=== PATIENT | male | born 1965 | race Caucasian/White ===

== ENCOUNTER → 2024-12-30 | Outpatient (CLI) | payer BC, SELFPAY ==
[2024-12-30 13:31] LABS: Basophils # (Auto) 0.1 Thou/mm3 (0.0-0.2); Basophils % (Auto) 1 % (0-2.5); Eosinophils # (Auto) 0.2 Thou/mm3 (0.0-0.5); Eosinophils % (Auto) 3 % (0-10); Hematocrit 40.7 % (41.0-53.0); Hemoglobin 13.9 g/dL (13.5-16.0); Immature Granulocytes Auto 0.01 Thou/mm3 (0.00-0.00); Lymphocytes # (Auto) 1.9 Thou/mm3 (1.0-4.8); Lymphocytes % (Auto) 28 % (10-50); Mean Corpuscular HGB Conc 34.2 g/dl (31.0-37.0); Mean Corpuscular Hemoglobin 30.8 pg (25.0-35.0); Mean Corpuscular Volume 90 fL (80-100); Monocytes # (Auto) 0.5 Thou/mm3 (0.0-0.8); Monocytes % (Auto) 7 % (0-12); Neutrophils # (Auto) 4.2 Thou/mm3 (1.8-7.7); Neutrophils % (Auto) 61 % (37-80); Nucleated Red Blood Cell # 0.00 Thou/mm3 (0.00-0.00); Nucleated Red Blood Cell % 0 /100 WBC (0); Platelet Count 259 Thou/mm3 (140-440); RDW Standard Deviation 42.4 fL (35.1-43.9); Red Blood Count 4.52 Miln/mm3 (4.50-5.90); White Blood Count 6.8 Thou/mm3 (3.8-10.6)
[2024-12-30 13:47] LABS: Glucose Estimated Average 114 mg/dL (80-131); Hemoglobin A1C 5.6 % Hgb (4.8-6.0)
[2024-12-30 13:49] LABS: Alanine Aminotransferase 27 U/L (10-49); Albumin, Serum 4.3 gm/dL (3.5-5.0); Albumin/Globulin Ratio 1.7 (1.2-2.2); Alkaline Phosphatase 65 U/L (46-116); Anion Gap 6 (7-16); Aspartate Amino Transferase 24 U/L (0-34); BUN/Creatinine Ratio 6 Ratio (12-20); Bilirubin,Total 0.3 mg/dL (0.3-1.2); Blood Urea Nitrogen 8 mg/dL (9-23); Calcium 8.9 mg/dL (8.3-10.6); Calcium (Corrected) 8.9 mg/dL (8.5-10.1); Carbon Dioxide 28.8 mMol/L (20.0-31.0); Cardiac Risk Estimate 5.6 RATIO (4.0-6.7); Chloride 108 mMol/L (98-107); Cholesterol 208 mg/dL (132-200); Creatinine (Component) 1.3 mg/dL (0.6-1.3); Globulin 2.6 gm/dL (2.3-3.5); Glucose 98 mg/dL (74-106); HDL Cholesterol 37 mg/dL (40-60); LDL Cholesterol,Calculated 130 mg/dL (0-130); Osmolality,Calculated 283 (275-295); Potassium 4.3 mMol/L (3.4-5.1); Sodium 143 mMol/L (136-145); Total Protein 6.9 gm/dL (5.7-8.2); Triglycerides 205 mg/dL (30-150); eGFR > 60 See Note
== END | disposition home or self-care (01) ==
PROVIDERS: PCP Family Medicine; Referring Provider Family Medicine; Visit Provider Family Medicine
DX: E11.65 Type 2 diabetes mellitus with hyperglycemia (principal)
CPT/HCPCS: 36415; 80053; 80061; 83036; 85025

== ENCOUNTER → 2025-02-27 | Outpatient (CLI) | payer BC, SELFPAY ==
--- NOTE | 2025-02-27 | XR_ITS ---
EXAMINATION: PA lateral chest 2 views TECHNIQUE: Upright PA lateral chest 2 views Date and time: February 27, 2025, 1159 hours, comparison August 11, 2011 INDICATIONS: Physical examination FINDINGS: Normal heart size Stable small granuloma right lung. No interval pneumonia or pulmonary edema IMPRESSION: No active disease
[2025-02-27 12:43] LABS: Basophils # (Auto) 0.1 Thou/mm3 (0.0-0.2); Basophils % (Auto) 1 % (0-2.5); Eosinophils # (Auto) 0.1 Thou/mm3 (0.0-0.5); Eosinophils % (Auto) 1 % (0-10); Hematocrit 39.1 % (41.0-53.0); Hemoglobin 13.0 g/dL (13.5-16.0); Immature Granulocytes Auto 0.02 Thou/mm3 (0.00-0.00); Lymphocytes # (Auto) 1.6 Thou/mm3 (1.0-4.8); Lymphocytes % (Auto) 19 % (10-50); Mean Corpuscular HGB Conc 33.2 g/dl (31.0-37.0); Mean Corpuscular Hemoglobin 30.4 pg (25.0-35.0); Mean Corpuscular Volume 91 fL (80-100); Monocytes # (Auto) 0.5 Thou/mm3 (0.0-0.8); Monocytes % (Auto) 6 % (0-12); Neutrophils # (Auto) 6.3 Thou/mm3 (1.8-7.7); Neutrophils % (Auto) 73 % (37-80); Nucleated Red Blood Cell # 0.00 Thou/mm3 (0.00-0.00); Nucleated Red Blood Cell % 0 /100 WBC (0); Platelet Count 310 Thou/mm3 (140-440); RDW Standard Deviation 41.8 fL (35.1-43.9); Red Blood Count 4.28 Miln/mm3 (4.50-5.90); White Blood Count 8.6 Thou/mm3 (3.8-10.6)
[2025-02-27 13:05] LABS: Sed Rate (ESR) 31 mm/hr (0-20)
== END | disposition home or self-care (01) ==
LOC: CDIM 11:17 → COPL 12:06
PROVIDERS: PCP Family Medicine; Referring Provider Family Medicine; Visit Provider Radiology Diagnostic Radiology
DX: R07.9 Chest pain, unspecified (principal); R70.0 Elevated erythrocyte sedimentation rate; R68.89 Other general symptoms and signs
CPT/HCPCS: 36415; 71046; 85025; 85652

== ENCOUNTER 2025-03-14 11:43 | Emergency (ER) | payer BC, SELFPAY ==
[2025-03-14 11:44] VITALS: BMI 31.0
[2025-03-14 11:59] VITALS: BP 155/83; PULSE 62; RESP 18; TEMP 36.9; O2SAT 98
--- NOTE | 2025-03-14 12:20 | XR_ITS ---
Examination: CT soft tissue neck, with intravenous contrast. 2-D coronal reconstructions. 2-D sagittal reconstructions. Date and time of exam : March 14, 2025, 1455 hours INDICATIONS: Lump on the posterior aspect of the tongue noticed 1 month ago. CTDI: vol (mGy): 14.6 DLP: (mGycm): 373 Technique: 1.25 mm axial sections of the neck of the obtained. Coronal and sagittal reconstructions have been obtained. Intravenous contrast administered 50 cc Isovue 370. Low dose protocols were performed. One or more of the following dose reduction techniques were used; automated exposure control, adjustment of the mA and/or KV according to patient size, use of iterative reconstruction technique. Findings: Symmetrical nasopharynx oropharynx Suspicious for enhancing mass in the left oropharynx, axial image 32, 19 x 20 mm Carotid triangle lymphadenopathy, the largest lymph node on the left side 13 mm Normal epiglottis No prevertebral soft tissue prominence The larynx appears normal Symmetrical thyroid lobes IMPRESSION: Suspicious for enhancing mass in the left oropharynx, 19 x 20 mm Recommend direct inspection Recommend PET/CT scan for staging follow-up
--- NOTE | 2025-03-14 12:22 | PD.EDRME ---
Rapid Medical Screening Exam FOR[facility], LATER [facility] Arrival date/time: 03/14/25 11:43 60-year-old male with no known medical history presents to the emergency room with a chief complaint of a lump to the back of his throat near his tongue x 1 month I have greeted and performed a focused initial assessment of this patient. A comprehensive ED assessment and evaluation of the patient, analysis of all test results, and completion of the medical decision making process will be conducted by additional ED providers. Chief Complaint: Dental/Oral/Throat Time Seen by Provider: 03/14/25 12:12 Vital signs: Vital Signs Temperature 98.5 F 03/14/25 11:59 Pulse Rate 62 03/14/25 11:59 Respiratory Rate 18 03/14/25 11:59 Blood Pressure 155/83 H 03/14/25 11:59 Pulse Oximetry (%) 98 03/14/25 11:59 Oxygen Delivery Method Room Air 03/14/25 11:59 Vital signs reviewed by provider: Yes Exam: ENT shows a normal posterior pharynx no exudates. There is a lump in the back of the patient's tongue on the left side Clear bilateral lung sounds normal breath sounds Clinical Impression: Tongue cancer/abscess
[2025-03-14 12:59] LABS: Basophils # (Auto) 0.0 Thou/mm3 (0.0-0.2); Basophils % (Auto) 1 % (0-2.5); Eosinophils # (Auto) 0.1 Thou/mm3 (0.0-0.5); Eosinophils % (Auto) 1 % (0-10); Hematocrit 41.5 % (41.0-53.0); Hemoglobin 13.6 g/dL (13.5-16.0); Immature Granulocytes Auto 0.01 Thou/mm3 (0.00-0.00); Lymphocytes # (Auto) 1.5 Thou/mm3 (1.0-4.8); Lymphocytes % (Auto) 20 % (10-50); Mean Corpuscular HGB Conc 32.8 g/dl (31.0-37.0); Mean Corpuscular Hemoglobin 30.4 pg (25.0-35.0); Mean Corpuscular Volume 93 fL (80-100); Monocytes # (Auto) 0.4 Thou/mm3 (0.0-0.8); Monocytes % (Auto) 6 % (0-12); Neutrophils # (Auto) 5.7 Thou/mm3 (1.8-7.7); Neutrophils % (Auto) 73 % (37-80); Nucleated Red Blood Cell # 0.00 Thou/mm3 (0.00-0.00); Nucleated Red Blood Cell % 0 /100 WBC (0); Platelet Count 317 Thou/mm3 (140-440); RDW Standard Deviation 43.5 fL (35.1-43.9); Red Blood Count 4.47 Miln/mm3 (4.50-5.90); White Blood Count 7.9 Thou/mm3 (3.8-10.6)
[2025-03-14 13:21] LABS: Alanine Aminotransferase 16 U/L (10-49); Albumin, Serum 4.9 gm/dL (3.5-5.0); Albumin/Globulin Ratio 1.8 (1.2-2.2); Alkaline Phosphatase 60 U/L (46-116); Anion Gap 9 (7-16); Aspartate Amino Transferase 20 U/L (0-34); BUN/Creatinine Ratio 8 Ratio (12-20); Bilirubin,Total 0.6 mg/dL (0.3-1.2); Blood Urea Nitrogen 9 mg/dL (9-23); Calcium 9.3 mg/dL (8.3-10.6); Calcium (Corrected) 9.3 mg/dL (8.5-10.1); Carbon Dioxide 29.1 mMol/L (20.0-31.0); Chloride 104 mMol/L (98-107); Creatinine (Component) 1.2 mg/dL (0.6-1.3); Estimated Creatinine Clearance 75.5 mL/min (>60); Globulin 2.8 gm/dL (2.3-3.5); Glucose 112 mg/dL (74-106); Osmolality,Calculated 282 (275-295); Potassium 4.4 mMol/L (3.4-5.1); Sodium 142 mMol/L (136-145); Total Protein 7.7 gm/dL (5.7-8.2); eGFR > 60 See Note
[2025-03-14] MEDS: KETOROLAC INJ 30 MG/ML VIAL IVP (17:43)
[2025-03-14 17:49] VITALS: BP 168/86; PULSE 78; RESP 16; TEMP 36.6; O2SAT 98
--- NOTE | 2025-04-21 21:07 | EDNOTE_ITS ---
ED General RME/HPI General Chief complaint: Dental/Oral/Throat Stated complaint: CYST ON BACK OF MY TONGUE X1.5 MONTHS Time Seen by Provider: 03/14/25 12:12 Source: patient Arrival date/time: 03/14/25 11:43 Mode of arrival: ambulatory Limitations: no limitations RME / HPI complaint: 60-year-old male states that he has a cystlike lesion on his tongue for 1 m Radiation: non-radiation Severity: mild Severity scale (1-10): 1 Consistency: intermittent RME / HPI narrative: 03/14/25 11:43 60-year-old male with no known medical history presents to the emergency room with a chief complaint of a lump to the back of his throat near his tongue x 1 month I have greeted and performed a focused initial assessment of this patient. A comprehensive ED assessment and evaluation of the patient, analysis of all test results, and completion of the medical decision making process will be conducted by additional ED providers. Exam: ENT shows a normal posterior pharynx no exudates. There is a lump in the back of the patient's tongue on the left side Clear bilateral lung sounds normal breath sounds Impression: Tongue cancer/abscess Related Data Previous Rx's ?Medication ?Instructions ?Recorded hydrocodone 5 mg-acetaminophen 325 1 tab PO BID PRN pa in #12 tabs 03/14/25 mg tablet Allergies Allergy/AdvReac Type Severity Reaction Status Date / Time No Known Allergies Allergy Verified 03/14/25 11:47 Review of Systems Review of Systems Systems Reviewed: All systems reviewed, normal except as documented Constitutional Constitutional: Reports system reviewed and no additional complaints, except as documented and Denies fever(s) ENT Ears, Nose, Mouth, and Throat: Reports system reviewed and no additional complaints, except as documented Comments: Cyst on tongue Cardiovascular Cardiovascular: Reports system reviewed and no additional complaints, except as documented, Denies chest pain and Reports dyspnea Respiratory Respiratory: Reports system reviewed and no additional complaints, except as documented, Reports dyspnea and Denies wheezing Allergic/Immunologic Allergic/Immunologic: Denies wheezing Past Medical History Past Medical History CARDIAC: Negative Cardiac Disorders or Congestive Heart Failure RESPIRATORY: Negative Chronic Obstructive Pulmonary Disease (COPD) or Asthma GENITOURINARY: Negative Renal Disease ENDOCRINE: Negative Diabetes Mellitus Type 1 or Diabetes Mellitus Type 2 HEMATOLOGIC: Negative Sickle Cell Disease Social History SMOKING STATUS: Never smoker ED Exam General Limitations: Present no limitations General appearance: Present alert and in no apparent distress Head Head exam: Present atraumatic Eye Eye exam: Present normal appearance, PERRL and EOMI ENT ENT exam: Present normal exam, normal oropharynx and mucous membranes moist Neck Neck exam: Present normal inspection, full ROM and trachea midline Respiratory Respiratory exam: Present normal lung sounds bilaterally Abdominal Exam Abdominal exam: Present soft and normal bowel sounds Extremities Exam Extremities exam: Present normal inspection and full ROM Psychiatric Psychiatric exam: Present normal affect and normal mood Skin Skin exam: Present warm, dry, intact and normal color Course Quality Measures none Orders Category Date Time Status CT Screening NOW Care 03/14/25 12:[address] soft tissue neck w con Stat Exams 03/14/25 12:20 Completed CBC Stat Lab 03/14/25 12:44 Completed CMP [Comprehensive Metabolic Panel] Stat Lab 03/14/25 12:44 Completed Ketorolac Inj [Toradol Inj] Med 03/14/25 17:33 Discontinued 30 mg IVP X1 ONE Vital Signs Vital signs: Vital Signs Temperature 98.5 F 03/14/25 11:59 Pulse Rate 62 03/14/25 11:59 Respiratory Rate 18 03/14/25 11:59 Blood Pressure 155/83 H 03/14/25 11:59 Pulse Oximetry (%) 98 03/14/25 11:59 Oxygen Delivery Method Room Air 03/14/25 11:59 Discharge Plan Plan Patient Disposition: HOME (Self Care) Patient condition on transfer: Stable Prescriptions/Referrals Prescriptions/Med Rec: New hydrocodone-acetaminophen 5-325 mg tablet 1 tab PO BID MDD 10mg PRN (Reason: pain) Qty: 12 0RF Referrals: Kee Gupta MD [Primary Care Provider, Family Practice] - 03/17/25 Problem List Clinical Impression: Mass of tongue Patient/Caregiver Discharge Instructions Additional Instructions: Today your CT scan shows: IMPRESSION: Suspicious for enhancing mass in the left oropharynx, 19 x 20 mm Recommend direct inspection Recommend PET/CT scan for staging follow-up. Will need to follow-up with your primary care next week. You need to get your PET scan and CT scan for staging done as soon as possible as per your primary care physician. You will also need a referral to the ear nose and throat doctor. I know you have been waiting for 2 weeks but please let your primary care know that you now have a positive CT scan that needs a workup. Print Language: Burkinan Stand Alone Forms: Cathie Award Info., Patient Portal Info Letter MDM Narrative MDM hospital course (for use when minimal MDM required): Patient reviewed. No evidence of mass. Differential diagnosis includes cancer versus cyst, abscess. The patient does not have a fever and at this time he states he does not smoke.? Whether he chews. The patient will need to get follow-up with primary care physician to get a PET scan and/or further treatment. He may need referral to ENT. This was expressed to the patient and return precautions were given and understood. Clinical Information Provided by: patient Medical Records reviewed None Meds/Rx considered, not ordered None Labs/Rad/Tests considered, not ordered None Chronic Illness/Social Conditions which may negatively complicate care or outcome(s)-explain: None or not applicable EKG EKG not done Labs Labs: none and see narrative above Imaging Imaging interpretation: see narrative above Imaging Interpretation(s): IMPRESSION: Suspicious for enhancing mass in the left oropharynx, 19 x 20 mm Recommend direct inspection Recommend PET/CT scan for staging follow-up Medication Administration(s) Medication Administration History Discontinued Medications Ketorolac Tromethamine (Ketorolac Inj 30 Mg/Ml Vial) 30 mg IVP X1 ONE Stop: 03/14/25 17:34 Last Admin: 03/14/25 17:43 Dose: 30 mg Documented By: J LUIS Diagnosis Differential Diagnosis ED Complaint MDM: Cancer, tongue lesion, abscess, cyst, Diagnoses ruled out and/or further discussions: At this time I cannot tell what this is unless the patient follows up with ENT and potentially gets a biopsy if needed.
== END 2025-03-14 17:50 | disposition home or self-care (01) ==
PROVIDERS: Nurse Practitioner Family; Emergency Provider Emergency Medicine; PCP Family Medicine
DX: K13.79 Other lesions of oral mucosa (principal)
CPT/HCPCS: 36415; 70491; 80053; 85025; 96374; 99283; A4649; J1885; Q9967